=== PATIENT | female | born 1960 | race Hispanic/Latino ===

== ENCOUNTER → 2016-09-12 | Outpatient (CLI) | payer BC ==
[2016-09-12 09:24] LABS: CHLORIDE,CL 116 mmol/L (98-110); SODIUM,NA 141 mmol/L (136-146)
== END ==
LOC: MW.CHRC 08:44
PROVIDERS: ATTEND Family Medicine
DX: Z00.00 Encounter for general adult medical examination without abnormal findings (principal); I10 Essential (primary) hypertension; R73.09 Other abnormal glucose; E78.5 Hyperlipidemia, unspecified
CPT/HCPCS: 36415; 80053; 80061; 83036; 84439; 84443; 85027

== ENCOUNTER → 2016-10-09 | Outpatient (CLI) | payer BC ==
[2016-10-09 15:33] LABS: CHLORIDE,CL 113 mmol/L (98-110); SODIUM,NA 142 mmol/L (136-146)
== END ==
LOC: MW.CHRC 14:19
PROVIDERS: ATTEND Family Medicine
DX: R10.9 Unspecified abdominal pain (principal)
CPT/HCPCS: 36415; 80053; 82150; 83690; 85025; 86140

== ENCOUNTER → 2016-10-16 | Outpatient (CLI) | payer BC ==
--- NOTE | 2016-10-16 16:21 | CT ---
CT of the abdomen and pelvis without contrast. HISTORY: Pain TECHNIQUE: Axial CT images were obtained of the abdomen and pelvis without contrast. Coronal and sag ittal reconstructions obtained. FINDINGS: The lung bases are clear, no pleural effusion. The liver, spleen, adrenal glands, and pancreas appear unremarkable for noncontrast examination. The gallbladder appears normal. There is no bulky retroperitoneal lymphadenopathy. No abdominal ascite s. The left kidney is moderately atrophic of a nodular appearance to the cortex, likely partial residua l renal tissue. The large and small bowel are normal in caliber without evidence of obstruction. The appendix appear s normal. There is no bulky pelvic lymphadenopathy. No free fluid. No free air. The urinary bladder appears normal. The visualized osseous structures appear normal. IMPRESSION: No acute findings within the abdomen or pelvis.
--- NOTE | 2016-10-16 17:44 | MY ---
EXAMINATION: Bilateral digital mammography utilizing CAD. HISTORY: Screening exam. Baseline. FINDINGS: Bilateral fibroglandular densities. There are a few asymmetries annotated in the right breast. Otherwise, no suspicious calcifications, masses or architectural distortions. No pathologi c appearing lymph nodes, no abnormal skin thickening or nipple inversion. Other CAD highlighted r egions appear normal at this time. IMPRESSION: BI-RADS category 0 - Incomplete study. Right breast diagnostic is needed for further evaluation. THE FALSE-NEGATIVE RATE OF MAMMOGRAM IS APPROXIMATELY 10%. MANAGEMENT OF A PALPABLE ABNORMALITY MUST BE BASED UPON CLINICAL GROUNDS. SENSITIVITY FOR DETECTION OF ABNORMALITIES IN DENSE BREASTS IS LOW. NOTE: A letter will be sent to the patient regarding findings. [facility] -- DEANA Clinton [phone] - FAX [phone]
== END ==
LOC: MW.MAM 10:28
PROVIDERS: ATTEND Family Medicine
DX: Z12.31 Encounter for screening mammogram for malignant neoplasm of breast (principal); R10.9 Unspecified abdominal pain; R79.89 Other specified abnormal findings of blood chemistry
CPT/HCPCS: 74176; G0202

== ENCOUNTER 2017-03-28 15:44 | Emergency (ER) | payer BC ==
[2017-03-28] MEDS ORDERED: Sodium Chloride 0.9% 10 ML Syringe FLUSH PRN (16:01)
[2017-03-28] MEDS ORDERED: Aspirin 81 MG Tab.Chew PO ONE (16:01)
[2017-03-28] MEDS ORDERED: Sodium Chloride 0.9% 2.5 ML Syringe FLUSH PRN (16:01)
--- NOTE | 2017-03-28 16:06 | EDM.PDOC ---
ED HPI GENERAL MEDICAL PROBLEM - General Stated Complaint: CHEST PAIN/HBP Time Seen by Provider: 03/28/17 16:00 Source of Information: Reports: Patient History Limitations: Reports: No Limitations - History of Present Illness INITIAL COMMENTS - FREE TEXT/NARRATIVE: HISTORY AND PHYSICAL: History of present illness: [Patient comes to the emergency room complaining of left chest and arm pain which she rates as 9 out of 10 and describes as a feeling of pressure. The pain is worse with use of her left arm. She states that she has had similar pain many times throughout her life, which was always resolved while in the ER with whatever treatment she was given.. Online compliance director is utilized as patient is primarily Frisian-speaking. No cardiac history other than hypertension. She has been following with Dr. Freeman, who apparently stopped all of patient's antihypertensive medications in the past couple of weeks. The patient is not sure why these medications were stopped. She isn't able to recall which medications she took. Her son presents with her today.] Review of systems: As per history of present illness and below otherwise all systems reviewed and negative. Past medical history: As per history of present illness and as reviewed below otherwise noncontributory. Surgical history: As per history of present illness and as reviewed below otherwise noncontributory. Social history: No reported history of drug or alcohol abuse. Family history: As per history of present illness and as reviewed below otherwise noncontributory. Physical exam: HEENT: Atraumatic, normocephalic. Lungs: Clear to auscultation, breath sounds equal bilaterally. Left anterior chest is tender with palpation. Discomfort she was experiencing is reproduced with palpation. Heart: S1S2, regular rate and rhythm. No murmur gallop click or rub. Abdomen: Obese. Soft, nondistended, nontender. No guarding or rebound. Pelvis: Stable nontender. Genitourinary: Deferred. Rectal: Deferred. Extremities: Atraumatic in appearance. Is nontender with palpation of her shoulder joint and with palpation of her arm. Pain is reproduced with passive range of motion of her left shoulder. Neurovascular unremarkable. Neuro: Awake, alert, oriented. Motor and sensory unremarkable throughout. Exam nonfocal. Diagnostics: [EKG, chest x-ray, CBC, CMP, PT/INR, troponin] Therapeutics: [Nitroglycerin 0.4 mg x 3] Impression: Chest pain Left shoulder pain] Plan: [Patient's pain is reproducible with palpation. EKG and troponin are within normal limits. Pain also occurs with range of motion to shoulder. Will treat as musculoskeletal pain at this time. Encouraged close follow-up with PCP in the next day or 2. Recommend [id number] analgesics as instructed by her PCP. Strict return precautions are reviewed with the patient and her son. They're in agreement with today's discussion. Questions are answered and concerns are addressed.] Definitive disposition and diagnosis as appropriate pending reevaluation and review of above. - Related Data Allergies Allergy/AdvReac Type Severity Reaction Status Date / Time Penicillins Allergy Rash Verified 03/28/17 19:13 Home Meds: Home Meds . [No Known Home Meds] 03/28/17 [History] ED ROS GENERAL - Review of Systems Review Of Systems: ROS reveals no pertinent complaints other than HPI. ED EXAM, GENERAL - Physical Exam Exam: See Below Course - Vital Signs Last Recorded V/S: Last Vital Signs Temp 97.7 F 03/28/17 17:40 Pulse 76 03/28/17 17:40 Resp 18 03/28/17 17:40 BP 135/102 H 03/28/17 17:40 Pulse Ox 93 L 03/28/17 17:40 - Orders/Labs/Meds Orders: Active Orders 24 hr Category Date Time Status EKG Documentation Completion [RC] STAT Care 03/28/17 16:02 Active Chest 2V [CR] Stat Exams 03/28/17 16:01 Taken Peripheral IV Insertion Adult [OM.PC] Stat Oth 03/28/17 16:01 Ordered Labs: Laboratory Tests 03/28/17 03/28/17 03/28/17 Range/Units 16:11 16:11 16:11 WBC 5.93 (4.0-11.0) K/uL RBC 4.12 L (4.30-5.90) M/uL Hgb 12.0 (12.0-16.0) g/dL Hct 38.1 (36.0-46.0) % MCV 92.5 (80.0-98.0) fL MCH 29.1 (27.0-32.0) pg MCHC 31.5 (31.0-37.0) g/dL RDW Std Deviation 49.2 (28.0-62.0) fl RDW Coeff of Eber 14 (11.0-15.0) % Plt Count 243 (150-400) K/uL MPV 11.50 (7.40-12.00) fL Neut % (Auto) 50.9 (48.0-80.0) % Lymph % (Auto) 37.3 (16.0-40.0) % Tift % (Auto) 8.9 (0.0-15.0) % Eos % (Auto) 2.2 (0.0-7.0) % Baso % (Auto) 0.7 (0.0-1.5) % Neut # (Auto) 3.0 (1.4-5.7) K/uL Lymph # (Auto) 2.2 (0.6-2.4) K/uL Tift # (Auto) 0.5 (0.0-0.8) K/uL Eos # (Auto) 0.1 (0.0-0.7) K/uL Baso # (Auto) 0.0 (0.0-0.1) K/uL Nucleated RBC % 0.0 /100WBC Nucleated RBCs # 0 K/uL INR 0.96 (0.86-1.11) Sodium 141 (136-146) mmol/L Potassium 4.8 (3.5-5.1) mmol/L Chloride 114 H (98-110) mmol/L Carbon Dioxide 18 L (21-31) mmol/L BUN 28 H (6.0-23.0) mg/dL Creatinine 2.4 H (0.6-1.5) mg/dL Est Cr Clr Drug Dosing TNP Estimated GFR (MDRD) 20.7 ml/min Glucose 88 (60-110) mg/dL Calcium 9.0 (8.8-10.8) mg/dL Total Bilirubin 0.4 (0.1-1.5) mg/dL AST 20 (5-40) IU/L ALT 14 (8-54) IU/L Alkaline Phosphatase 97 (40-150) Troponin I < 0.10 (0.0-0.29) NG/ML Total Protein 6.9 (6.0-8.0) g/dL Albumin 3.6 (3.5-5.0) g/dL Globulin 3.3 (2.0-3.5) g/dL Albumin/Globulin Ratio 1.1 L (1.3-2.8) Amylase 107 H (10-90) U/L Lipase 29 (7-80) U/L Meds: Medications Discontinued Medications Generic Name Dose Route Start Last Admin Trade Name Freq PRN Reason Stop Dose Admin Aspirin 324 mg 03/28/17 16:01 03/28/17 16:20 Aspirin PO 03/28/17 16:02 324 mg ONETIME ONE Administration Nitroglycerin Confirm 03/28/17 15:59 03/28/17 16:22 Nitrostat Administered 03/28/17 16:00 0.4 mg Dose Administration 0.4 mg .ROUTE .STK-MED ONE Sodium Chloride 10 ml 03/28/17 16:01 Saline Flush FLUSH ASDIRECTED PRN Keep Vein Open Sodium Chloride 2.5 ml 03/28/17 16:01 Saline Flush FLUSH ASDIRECTED PRN Keep Vein Open Departure - Departure Time of Disposition: 17:31 Disposition: Home, Self-Care 01 Condition: Good Clinical Impression: Left shoulder pain Instructions: Shoulder Pain, [id number] Referrals: PCP,None [Primary Care Provider] - Forms: ED Department Discharge Additional Instructions: The following information is given to patients seen in the emergency department who are being discharged to home. This information is to outline your options for follow-up care. We provide all patients seen in our emergency department with a follow-up referral. The need for follow-up, as well as the timing and circumstances, are variable depending upon the specifics of your emergency department visit. If you don't have a primary care physician on staff, we will provide you with a referral. We always advise you to contact your personal physician following an emergency department visit to inform them of the circumstance of the visit and for follow-up with them and/or the need for any referrals to a consulting specialist. The emergency department will also refer you to a specialist when appropriate. This referral assures that you have the opportunity for follow-up care with a specialist. All of these measure are taken in an effort to provide you with optimal care, which includes your follow-up. Under all circumstances we always encourage you to contact your private physician who remains a resource for coordinating your care. When calling for follow-up care, please make the office aware that this follow-up is from your recent emergency room visit. If for any reason you are refused follow-up, please contact the [facility] emergency department at and asked to speak to the emergency department charge nurse. [facility] [address] [place] [id number] Your lab results and chest x-ray within normal limits today. Your blood pressure is too high. Follow-up with your primary care provider or at the clinic listed above in the next 2-3 days. Return to ER as needed as discussed. - My Orders Last 24 Hours: My Active Orders 03/28/17 16:01 Chest 2V [CR] Stat Peripheral IV Insertion Adult [OM.PC] Stat 03/28/17 16:02 EKG Documentation Completion [RC] STAT - Assessment/Plan Last 24 Hours: My Active Orders 03/28/17 16:01 Chest 2V [CR] Stat Peripheral IV Insertion Adult [OM.PC] Stat 03/28/17 16:02 EKG Documentation Completion [RC] STAT
[2017-03-28] MEDS: Nitroglycerin 0.4 MG Tab.SL ONE ×3 (16:12→16:22)
[2017-03-28 16:55] LABS: CHLORIDE,CL 114 mmol/L (98-110); SODIUM,NA 141 mmol/L (136-146)
--- NOTE | 2017-03-29 10:59 | CR ---
EXAMINATION: Two-view chest (PA and Lateral views). HISTORY: Chest pain. FINDINGS: The trachea is midline. The cardiomediastinal silhouette is within normal limits. No pulmonary infilt rates, effusions or pneumothorax. Osseous structures appear unremarkable. IMPRESSION: No acute cardiopulmonary process.
== END 2017-03-28 17:41 | disposition home or self-care (01) ==
LOC: MW.ED 15:44
DX: R07.9 Chest pain, unspecified (principal); M25.512 Pain in left shoulder; Z88.0 Allergy status to penicillin
CPT/HCPCS: 36415; 71020; 80053; 82150; 83690; 84484; 85025; 85610; 99285; A9270; 93005

== ENCOUNTER 2020-01-08 17:30 | Observation (INO) | payer OTHER ==
[2020-01-08] MEDS ORDERED: Ondansetron 4 MG Tab.DIS PO PRN (17:35)
[2020-01-08] MEDS ORDERED: Ondansetron 4 MG/2 ML SDV IVPUSH PRN (17:35)
[2020-01-08] MEDS ORDERED: Acetaminophen 325 MG Tab PO PRN (17:35)
[2020-01-08] MEDS ORDERED: Calcium Gluconate 10% 1 GM/10 ML SDV IVPUSH ONE (17:40)
[2020-01-08] MEDS ORDERED: 50% Dextrose in Water 50 ML Syringe IVPUSH ONE (17:42)
[2020-01-08] MEDS ORDERED: Albuterol 0.083% 2.5 MG/3 ML Neb Soln NEB ONE ×2 (17:45→20:30)
[2020-01-08] MEDS ORDERED: Heparin Sodium 5,000 Units/ML Vial SUBCUT SCH (17:45)
[2020-01-08] MEDS ORDERED: Furosemide 20 MG/2 ML VIAL IVPUSH ONE (17:58)
--- NOTE | 2020-01-08 18:04 | PCM.HP.2 ---
H&P History of Present Illness - General Date of Service: 01/08/20 Admit Problem/Dx: Admission Diagnosis/Problem Admission Diagnosis/Problem Hyperkalemia Source of Information: Patient History Limitations: Reports: No Limitations - History of Present Illness Initial Comments - Free Text/Narative: 59-year-old female directly admitted from clinic for hyperkalemia. Potassium dorothy treadwell was 7.0 in clinic today. She has a PMH of CKD, HTN and hyperlipidemia. Patient was seen by PCP initially in clinic yesterday to discuss getting a nephrology referral appointment. Patient had seen a galvanizer zinc approximately 1-2 years ago and told her kidney function was approximately 10%. She had not followed up with a galvanizer zinc after this. Potassium level was noted to be 6.1 yesterday at PCP's office and patient was asked to return to clinic today for recheck. Potassium level was rechecked and confirmed to be elevated, however, today it was even higher at 7.0. EKG done in clinic was unremarkable. PCP then contacted galvanizer zinc at [facility] in [place] for recommendations. Certified Technician Specialist recommended admission to hospital for management of hyperkalemia. Patient denies any fevers, chills, sore throat, cough, SOB, chest pain, palpitations, nausea, vomiting, abdominal pain, diarrhea, blood in stool, blood in urine, numbness or tingling in extremities. Patient reports that she produces urine. - Related Data Allergies/Adverse Reactions: Allergies Allergy/AdvReac Type Severity Reaction Status Date / Time Penicillins Allergy Rash Verified 05/07/18 09:37 Home Medications: Home Meds Olmesartan Medoxomil 1 tab PO DAILY 05/07/18 [History] Progesterone, Micronized [Progesterone] 1 cap PO DAILY 05/07/18 [History] Rosuvastatin Calcium 1 tab PO DAILY 05/07/18 [History] carvediloL [Carvedilol] 1 tab PO DAILY 05/07/18 [History] predniSONE [Prednisone] 1 tab PO DAILY 05/07/18 [History] Past Medical History Cardiovascular History: Reports: Hypertension Genitourinary History: Reports: Chronic Renal Insuffiency Musculoskeletal History: Reports: Other (See Below) Other Musculoskeletal History: bilateral foot pain Social & Family History - Family History Family Medical History: Unobtainable - Caffeine Use Caffeine Use: Reports: Coffee H&P Review of Systems - Review of Systems: Review Of Systems: Comprehensive ROS is negative, except as noted in HPI. Exam - Exam Exam: See Below - Exam General: Alert, Oriented, Cooperative HEENT: Conjunctiva Clear, EOMI, Hearing Intact, Posterior Pharynx Clear, Pupils Equal, Pupils Reactive Neck: Supple, Trachea Midline Lungs: Clear to Auscultation, Normal Respiratory Effort Cardiovascular: Regular Rate, Regular Rhythm GI/Abdominal Exam: Normal Bowel Sounds, Soft, Non-Tender, No Distention Extremities: Normal Inspection, No Pedal Edema Peripheral Pulses: 2+: Radial (L), Radial (R) Skin: Warm, Dry, Intact Neurological: Cranial Nerves Intact, Strength Equal Bilateral, Normal Speech, Normal Tone Neuro Extensive - Mental Status: Alert, Oriented x3, Normal Mood/Affect Psychiatric: Alert, Normal Affect, Normal Mood Problem List Initiated/Reviewed/Updated: Yes Orders Last 24hrs: Active Orders 24 hr Category Date Time Status Patient Status [ADT] Routine ADT 01/08/20 17:35 Active Cardiac Monitoring [RC] . DIRECTED Care 01/08/20 17:39 Active Oxygen Therapy [RC] PRN Care 01/08/20 17:35 Active RT Aerosol Therapy [RC] ASDIRECTED Care 01/08/20 17:43 Active Up ad Altagracia [RC] ASDIRECTED Care 01/08/20 17:35 Active VTE/DVT Education [RC] PER UNIT ROUTINE Care 01/08/20 17:35 Active Vital Signs [RC] Q4H Care 01/08/20 17:35 Active Renal Dialysis Diet [DIET] Diet 01/08/20 Dinner Active CBC WITH AUTO DIFF [HEME] Urgent Lab 01/08/20 17:38 Ordered COMPREHENSIVE METABOLIC PN,CMP [CHEM] Urgent Lab 01/08/20 17:38 Ordered CORONAVIRUS COVID-19 RAPID [MOLEC] Urgent Lab 01/08/20 18:00 Received Acetaminophen [Tylenol] Med 01/08/20 17:35 Active 650 mg PO Q4H PRN Furosemide [Lasix] Med 01/08/20 17:58 Once 20 mg IVPUSH ONETIME ONE Heparin Sodium Med 01/08/20 17:45 Active 5,000 units SUBCUT Q8H Ondansetron [Zofran ODT] Med 01/08/20 17:35 Active 4 mg PO Q4H PRN Ondansetron [Zofran] Med 01/08/20 17:35 Active 4 mg IVPUSH Q4H PRN Sodium Chloride 0.9% [Normal Saline] 1,000 ml Med 01/08/20 18:00 Ordered IV STAT Medication Orders Acetaminophen (Tylenol) 650 mg PO Q4H PRN PRN Reason: Pain (Mild 1-3)/fever Furosemide (Lasix) 20 mg IVPUSH ONETIME ONE Stop: 01/08/20 17:59 Heparin Sodium (Porcine) (Heparin Sodium) 5,000 units SUBCUT Q8H ROBLES Sodium Chloride (Normal Saline) 1,000 mls @ 125 mls/hr IV STAT ROBLES Ondansetron HCl (Zofran Odt) 4 mg PO Q4H PRN PRN Reason: nausea, able to take PO Ondansetron HCl (Zofran) 4 mg IVPUSH Q4H PRN PRN Reason: Nausea Assessment/Plan Comment:: Assessment and Plan: 1. Hyperkalemia: - Admit to med/surg. Patient on telemetry. COVID19 test negative. Potassium level 7.0 at PCP's office this afternoon. PCP contacted galvanizer zinc at [facility] in [place], [place] for recommendations. Will give IV calcium gluconate 1 g, amp of D50, insulin reg 3 units, albuterol nebulizer treatment, IV lasix 20 mg and start IV NS @ 125 cc/hr. Patient will be on renal diet. Will recheck potassium level 2h after interventions. - EKG showed normal sinus rhythm. 2. Chronic kidney disease: - Creatinine level 4.0 and eGFR 11.4. Patient continues to produce urine. - Will require outpatient nephrology follow-up. 3. DVT prophylaxis: Heparin. 4. Past medical history of HTN and hyperlipidemia: - Continue home medications with the exception of ACEI/ARB.
[2020-01-08] MEDS: Heparin Sodium 5,000 Units/ML Vial SUBCUT SCH ×2 (18:50→19:41)
[2020-01-08] MEDS: Sodium Chloride 0.9% 1,000 ML IV SCH (19:39)
[2020-01-08 19:52] LABS: BLOOD UREA NITROGEN,BUN 49 mg/dL (7.0-18.0); CARBON DIOXIDE,CO2 19.4 mmol/L (21.0-32.0); CHLORIDE,CL 111 mmol/L (98-107); GLUCOSE RANDOM 92 mg/dL (74-106); POTASSIUM,K 6.2 mmol/L (3.5-5.1); SODIUM,NA 140 mmol/L (136-145)
[2020-01-08] MEDS: Insulin Regular, Human 100 Units/ML 10 ML Vial IVPUSH ONE ×2 (19:59→20:07)
[2020-01-09] MEDS: Sodium Chloride 0.9% 1,000 ML IV SCH ×3 (03:16→19:16)
[2020-01-09] MEDS: Heparin Sodium 5,000 Units/ML Vial SUBCUT SCH ×2 (05:34→18:00)
[2020-01-09 06:22] LABS: BLOOD UREA NITROGEN,BUN 47 mg/dL (7.0-18.0); CARBON DIOXIDE,CO2 19.5 mmol/L (21.0-32.0); CHLORIDE,CL 108 mmol/L (98-107); POTASSIUM,K 5.9 mmol/L (3.5-5.1); SODIUM,NA 137 mmol/L (136-145)
[2020-01-09 06:29] LABS: GLUCOSE RANDOM 39 mg/dL (74-106)
[2020-01-09] MEDS ORDERED: 50% Dextrose in Water 50 ML Syringe IVPUSH ONE (06:33)
[2020-01-09] MEDS: Melatonin 3 MG Tab PO SCH ×2 (07:35→21:37)
[2020-01-09] MEDS ORDERED: Albuterol 0.083% 2.5 MG/3 ML Neb Soln NEB ONE ×2 (07:35→13:00)
[2020-01-09] MEDS ORDERED: Furosemide 20 MG/2 ML VIAL IVPUSH ONE ×2 (07:47→12:57)
[2020-01-09] MEDS ORDERED: Calcium Gluconate 10% 1 GM/10 ML SDV IV ONE ×2 (07:50→13:20)
--- NOTE | 2020-01-09 10:07 | PCM.PN ---
- General Info Date of Service: 01/09/20 Subjective Update: Patient reports leg camping yesterday evening and hand numbness this morning. - Patient Data Vitals - Most Recent: Last Vital Signs Temp 35.5 C L 01/09/20 07:00 Pulse 69 01/09/20 07:00 Resp 14 01/09/20 07:00 BP 119/58 L 01/09/20 07:00 Pulse Ox 99 01/09/20 07:00 I&O - Last 24 Hours: Intake & Output 01/08/20 01/09/20 01/09/20 22:59 06:59 14:59 Intake Total 2980 Output Total 1300 Balance 1680 Lab Results Last 24 Hours: Laboratory Results - last 24 hr 01/08/20 01/08/20 01/08/20 Range/Units 18:00 19:10 19:10 WBC 7.04 (4.0-11.0) K/uL RBC 3.60 L (4.30-5.90) M/uL Hgb 10.3 L (12.0-16.0) g/dL Hct 34.2 L (36.0-46.0) % MCV 95.0 (80.0-98.0) fL MCH 28.6 (27.0-32.0) pg MCHC 30.1 L (31.0-37.0) g/dL RDW Std Deviation 48.7 (28.0-62.0) fl RDW Coeff of Eber 14 (11.0-15.0) % Plt Count 212 (150-400) K/uL MPV 11.90 (7.40-12.00) fL Neut % (Auto) 58.4 (48.0-80.0) % Lymph % (Auto) 31.0 (16.0-40.0) % [place] % (Auto) 7.5 (0.0-15.0) % Eos % (Auto) 2.7 (0.0-7.0) % Baso % (Auto) 0.4 (0.0-1.5) % Neut # (Auto) 4.1 (1.4-5.7) K/uL Lymph # (Auto) 2.2 (0.6-2.4) K/uL [place] # (Auto) 0.5 (0.0-0.8) K/uL Eos # (Auto) 0.2 (0.0-0.7) K/uL Baso # (Auto) 0.0 (0.0-0.1) K/uL Nucleated RBC % 0.0 /100WBC Nucleated RBCs # 0 K/uL Sodium 140 (136-145) mmol/L Potassium 6.2 H (3.5-5.1) mmol/L Chloride 111 H (98-107) mmol/L Carbon Dioxide 19.4 L (21.0-32.0) mmol/L BUN 49 H (7.0-18.0) mg/dL Creatinine 3.9 H (0.6-1.0) mg/dL Est Cr Clr Drug Dosing TNP Estimated GFR (MDRD) 11.7 ml/min Glucose 92 (74-106) mg/dL POC Glucose (60-110) mg/dL Calcium 8.3 L (8.5-10.1) mg/dL Total Bilirubin 0.3 (0.2-1.0) mg/dL AST 23 (15-37) IU/L ALT 25 (14-63) IU/L Alkaline Phosphatase 84 (46-116) U/L Total Protein 6.8 (6.4-8.2) g/dL Albumin 3.3 L (3.4-5.0) g/dL Globulin 3.5 (2.6-4.0) g/dL Albumin/Globulin Ratio 0.9 (0.9-1.6) COVID-19 (TRE[facility]) NEGATIVE (NEGATIVE) 01/08/20 01/08/20 01/09/20 Range/Units 20:13 22:35 05:25 WBC 8.09 (4.0-11.0) K/uL RBC 3.46 L (4.30-5.90) M/uL Hgb 10.0 L (12.0-16.0) g/dL Hct 32.9 L (36.0-46.0) % MCV 95.1 (80.0-98.0) fL MCH 28.9 (27.0-32.0) pg MCHC 30.4 L (31.0-37.0) g/dL RDW Std Deviation 48.3 (28.0-62.0) fl RDW Coeff of Eber 14 (11.0-15.0) % Plt Count 224 (150-400) K/uL MPV 12.10 H (7.40-12.00) fL Neut % (Auto) 62.1 (48.0-80.0) % Lymph % (Auto) 26.2 (16.0-40.0) % [place] % (Auto) 9.1 (0.0-15.0) % Eos % (Auto) 2.2 (0.0-7.0) % Baso % (Auto) 0.4 (0.0-1.5) % Neut # (Auto) 5.0 (1.4-5.7) K/uL Lymph # (Auto) 2.1 (0.6-2.4) K/uL [place] # (Auto) 0.7 (0.0-0.8) K/uL Eos # (Auto) 0.2 (0.0-0.7) K/uL Baso # (Auto) 0.0 (0.0-0.1) K/uL Nucleated RBC % 0.0 /100WBC Nucleated RBCs # 0 K/uL Sodium (136-145) mmol/L Potassium 4.8 (3.5-5.1) mmol/L Chloride (98-107) mmol/L Carbon Dioxide (21.0-32.0) mmol/L BUN (7.0-18.0) mg/dL Creatinine (0.6-1.0) mg/dL Est Cr Clr Drug Dosing Estimated GFR (MDRD) ml/min Glucose (74-106) mg/dL POC Glucose 180 H (60-110) mg/dL Calcium (8.5-10.1) mg/dL Total Bilirubin (0.2-1.0) mg/dL AST (15-37) IU/L ALT (14-63) IU/L Alkaline Phosphatase (46-116) U/L Total Protein (6.4-8.2) g/dL Albumin (3.4-5.0) g/dL Globulin (2.6-4.0) g/dL Albumin/Globulin Ratio (0.9-1.6) COVID-19 ([facility]RE[facility]) (NEGATIVE) 01/09/20 01/09/20 01/09/20 Range/Units 05:25 07:06 09:52 WBC (4.0-11.0) K/uL RBC (4.30-5.90) M/uL Hgb (12.0-16.0) g/dL Hct (36.0-46.0) % MCV (80.0-98.0) fL MCH (27.0-32.0) pg MCHC (31.0-37.0) g/dL RDW Std Deviation (28.0-62.0) fl RDW Coeff of Eber (11.0-15.0) % Plt Count (150-400) K/uL MPV (7.40-12.00) fL Neut % (Auto) (48.0-80.0) % Lymph % (Auto) (16.0-40.0) % [place] % (Auto) (0.0-15.0) % Eos % (Auto) (0.0-7.0) % Baso % (Auto) (0.0-1.5) % Neut # (Auto) (1.4-5.7) K/uL Lymph # (Auto) (0.6-2.4) K/uL [place] # (Auto) (0.0-0.8) K/uL Eos # (Auto) (0.0-0.7) K/uL Baso # (Auto) (0.0-0.1) K/uL Nucleated RBC % /100WBC Nucleated RBCs # K/uL Sodium 137 (136-145) mmol/L Potassium 5.9 H (3.5-5.1) mmol/L Chloride 108 H (98-107) mmol/L Carbon Dioxide 19.5 L (21.0-32.0) mmol/L BUN 47 H (7.0-18.0) mg/dL Creatinine 3.6 H (0.6-1.0) mg/dL Est Cr Clr Drug Dosing TNP Estimated GFR (MDRD) 12.9 ml/min Glucose 39 L* (74-106) mg/dL POC Glucose 133 H 115 H (60-110) mg/dL Calcium 8.0 L (8.5-10.1) mg/dL Total Bilirubin 0.3 (0.2-1.0) mg/dL AST 24 (15-37) IU/L ALT 26 (14-63) IU/L Alkaline Phosphatase 75 (46-116) U/L Total Protein 6.3 L (6.4-8.2) g/dL Albumin 3.0 L (3.4-5.0) g/dL Globulin 3.3 (2.6-4.0) g/dL Albumin/Globulin Ratio 0.9 (0.9-1.6) COVID-19 ([facility]) (NEGATIVE) Med Orders - Current: Current Medications Acetaminophen (Tylenol) 650 mg PO Q4H PRN PRN Reason: Pain (Mild 1-3)/fever Carvedilol (Coreg) 25 mg PO DAILY [facility] Heparin Sodium (Porcine) (Heparin Sodium) 5,000 units SUBCUT Q12H ROBLES Last Admin: 01/09/20 05:34 Dose: 5,000 units Documented by: Sodium Chloride (Normal Saline) 1,000 mls @ 125 mls/hr IV STAT [facility] Last Admin: 01/09/20 03:16 Dose: 125 mls/hr Documented by: Melatonin (Melatonin) 9 mg PO BEDTIME [facility] Last Admin: 01/09/20 07:35 Dose: Not Given Documented by: Ondansetron HCl (Zofran Odt) 4 mg PO Q4H PRN PRN Reason: nausea, able to take PO Ondansetron HCl (Zofran) 4 mg IVPUSH Q4H PRN PRN Reason: Nausea Rosuvastatin Calcium (Crestor) 40 mg PO BEDTIME [facility] Discontinued Medications Albuterol (Proventil Neb Soln) 2.5 mg NEB ONETIME ONE Stop: 01/08/20 17:46 Last Admin: 01/08/20 21:05 Dose: Not Given Documented by: Albuterol (Proventil Neb Soln) 2.5 mg NEB ONETIME ONE Stop: 01/08/20 20:31 Last Admin: 01/08/20 21:02 Dose: 2.5 mg Documented by: Albuterol (Proventil Neb Soln) 2.5 mg NEB ONETIME ONE Stop: 01/09/20 07:36 Last Admin: 01/09/20 08:40 Dose: 2.5 mg Documented by: Calcium Gluconate (Calcium Gluconate) 1 gm IVPUSH ONETIME ONE Stop: 01/08/20 17:41 Last Admin: 01/08/20 19:48 Dose: 1 gm Documented by: Calcium Gluconate (Calcium Gluconate) 1 gm IV ONETIME ONE Stop: 01/09/20 07:51 Last Admin: 01/09/20 08:41 Dose: 1 gm Documented by: Dextrose/Water (Dextrose 50% In Water) 50 ml IVPUSH ONETIME ONE Stop: 01/08/20 17:43 Last Admin: 01/08/20 19:55 Dose: 50 ml Documented by: Dextrose/Water (Dextrose 50% In Water) 50 ml IVPUSH ONETIME ONE Stop: 01/09/20 06:34 Last Admin: 01/09/20 06:45 Dose: 50 ml Documented by: Furosemide (Lasix) 20 mg IVPUSH ONETIME ONE Stop: 01/08/20 17:59 Last Admin: 01/08/20 19:45 Dose: 20 mg Documented by: Furosemide (Lasix) 20 mg IVPUSH ONETIME ONE Stop: 01/09/20 07:48 Last Admin: 01/09/20 08:41 Dose: 20 mg Documented by: Heparin Sodium (Porcine) (Heparin Sodium) 5,000 units SUBCUT Q8H ROBLES Last Admin: 01/08/20 18:18 Dose: Not Given Documented by: Insulin Human Regular (Novolin R) 3 unit IVPUSH ONETIME ONE; Protocol Stop: 01/08/20 17:42 Last Admin: 01/08/20 20:07 Dose: 3 units Documented by: - Exam General: Alert, Oriented, Cooperative, No Acute Distress Lungs: Clear to Auscultation, Normal Respiratory Effort Cardiovascular: Regular Rate, Regular Rhythm GI/Abdominal Exam: Normal Bowel Sounds, Soft, Non-Tender, No Distention Extremities: Normal Inspection, No Pedal Edema Sepsis Event Note - Evaluation Sepsis Screening Result: No Definite Risk - Focused Exam Vital Signs: Vital Signs Temp Pulse Resp BP Pulse Ox 01/09/20 07:00 35.5 C L 69 14 119/58 L 99 01/09/20 03:27 35.9 C L 61 16 127/82 96 01/08/20 23:43 36.6 C 75 17 119/58 L 96 - Problem List Review Problem List Initiated/Reviewed/Updated: Yes - My Orders Last 24 Hours: My Active Orders 01/08/20 Dinner Renal Dialysis Diet [DIET] 01/08/20 17:35 Patient Status [ADT] Routine Oxygen Therapy [RC] PRN Up ad Altagracia [RC] ASDIRECTED VTE/DVT Education [RC] PER UNIT ROUTINE Vital Signs [RC] Q4H Acetaminophen [Tylenol] 650 mg PO Q4H PRN Ondansetron [Zofran ODT] 4 mg PO Q4H PRN Ondansetron [Zofran] 4 mg IVPUSH Q4H PRN 01/08/20 17:39 Cardiac Monitoring [RC] . DIRECTED 01/08/20 17:43 RT Aerosol Therapy [RC] ASDIRECTED 01/08/20 18:00 Sodium Chloride 0.9% [Normal Saline] 1,000 ml IV STAT 01/08/20 18:30 Heparin Sodium 5,000 units SUBCUT Q12H 01/08/20 18:44 Code Status [Resuscitation Status] Routine 01/08/20 19:00 Telemetry Monitoring [Cardiac Monitoring] [RC] Q8H 01/08/20 21:00 Melatonin 9 mg PO BEDTIME 01/09/20 07:35 RT Aerosol Therapy [RC] ASDIRECTED 01/09/20 09:00 carvediloL [Coreg] 25 mg PO DAILY 01/09/20 21:00 Rosuvastatin [Crestor] 40 mg PO BEDTIME 01/10/20 05:11 CBC WITH AUTO DIFF [HEME] AM COMPREHENSIVE METABOLIC PN,CMP [CHEM] AM - Plan Plan:: Assessment and Plan: 1. Hyperkalemia, improving: - Potassium level 5.9 this morning. Will give IV calcium gluconate 1 g, albuterol nebulizer treatment, IV lasix 20 mg this morning. Continue IV NS @ 125 cc/hr. Will recheck potassium level this morning. Will contact nephrology for further recommendations. - EKG showed normal sinus rhythm. 2. Chronic kidney disease: - Will require outpatient nephrology follow-up. 3. DVT prophylaxis: Heparin. 4. Past medical history of HTN and hyperlipidemia: - Continue home medications with the exception of ACEI/ARB.
[2020-01-09] MEDS: Carvedilol 25 MG Tab PO SCH (10:25)
[2020-01-09 11:56] LABS: BLOOD UREA NITROGEN,BUN 50 mg/dL (7.0-18.0); CARBON DIOXIDE,CO2 22.3 mmol/L (21.0-32.0); CHLORIDE,CL 105 mmol/L (98-107); GLUCOSE RANDOM 122 mg/dL (74-106); POTASSIUM,K 6.5 mmol/L (3.5-5.1); SODIUM,NA 135 mmol/L (136-145)
--- NOTE | 2020-01-09 16:01 | US ---
Renal ultrasound: Multiple real-time images of the kidneys were obtained. Comparison: Previous renal ultrasound exam of 01/15/17. Findings: Both kidneys show echogenic cortices compatible with medical renal disease. Areas of cortical thinning are seen within left kidney which are stable from previous study which is compatible with scarring. No hydronephrosis is seen. Measurements: Right kidney length: 9.5 cm Left kidney length: 7.8 cm Impression: 1. Echogenic renal cortices compatible with medical renal disease. 2. Stable areas of scarring within the left kidney when comparing to prior study. 3. No hydronephrosis is seen. 4. Small left kidney. Diagnostic code #2 Study was dictated in MDT
[2020-01-09] MEDS ORDERED: Furosemide 40 MG/4 ML VIAL IVPUSH ONE (17:17)
[2020-01-09] MEDS ORDERED: Rosuvastatin 10 MG Tab PO SCH (21:00)
[2020-01-09 22:21] LABS: BLOOD UREA NITROGEN,BUN 55 mg/dL (7.0-18.0); CARBON DIOXIDE,CO2 22.8 mmol/L (21.0-32.0); CHLORIDE,CL 109 mmol/L (98-107); GLUCOSE RANDOM 119 mg/dL (74-106); POTASSIUM,K 5.3 mmol/L (3.5-5.1); SODIUM,NA 140 mmol/L (136-145)
[2020-01-10] MEDS: Sodium Chloride 0.9% 1,000 ML IV SCH ×2 (02:44→15:08)
[2020-01-10 06:42] LABS: BLOOD UREA NITROGEN,BUN 56 mg/dL (7.0-18.0); CARBON DIOXIDE,CO2 18.6 mmol/L (21.0-32.0); CHLORIDE,CL 110 mmol/L (98-107); GLUCOSE RANDOM 102 mg/dL (74-106); POTASSIUM,K 5.3 mmol/L (3.5-5.1); SODIUM,NA 139 mmol/L (136-145)
[2020-01-10] MEDS: Heparin Sodium 5,000 Units/ML Vial SUBCUT SCH (06:57)
[2020-01-10] MEDS: Carvedilol 25 MG Tab PO SCH (09:04)
[2020-01-10] MEDS ORDERED: Furosemide 40 MG/4 ML VIAL IVPUSH ONE ×2 (09:35→15:51)
[2020-01-10] MEDS ORDERED: Sodium Polystyrene Sulfonate 15 GM/60 ML Susp 60 ML Bot PO ONE ×2 (10:23→15:51)
[2020-01-10] MEDS: Sodium Bicarbonate 650 MG Tab PO SCH ×2 (10:29→13:50)
--- NOTE | 2020-01-10 12:44 | PCM.PN ---
<Efra Bedolla M - Last Filed: 01/10/20 12:31> - General Info Date of Service: 01/10/20 Subjective Update: Denies any pain, fevers, chills, SOB or chest pain. Eating and urinating appropriately. - Patient Data Vitals - Most Recent: Last Vital Signs Temp 36.8 C 01/10/20 12:00 Pulse 70 01/10/20 12:00 Resp 16 01/10/20 12:00 BP 165/96 H 01/10/20 12:00 Pulse Ox 97 01/10/20 12:00 I&O - Last 24 Hours: Intake & Output 01/09/20 01/10/20 01/10/20 22:59 06:59 14:59 Intake Total 1999 1825 Output Total 225 2200 Balance -250 -374 Lab Results Last 24 Hours: Laboratory Results - last 24 hr 01/09/20 01/09/20 01/09/20 Range/Units 13:12 16:19 16:31 WBC (4.0-11.0) K/uL RBC (4.30-5.90) M/uL Hgb (12.0-16.0) g/dL Hct (36.0-46.0) % MCV (80.0-98.0) fL MCH (27.0-32.0) pg MCHC (31.0-37.0) g/dL RDW Std Deviation (28.0-62.0) fl RDW Coeff of Eber (11.0-15.0) % Plt Count (150-400) K/uL MPV (7.40-12.00) fL Neut % (Auto) (48.0-80.0) % Lymph % (Auto) (16.0-40.0) % [place] % (Auto) (0.0-15.0) % Eos % (Auto) (0.0-7.0) % Baso % (Auto) (0.0-1.5) % Neut # (Auto) (1.4-5.7) K/uL Lymph # (Auto) (0.6-2.4) K/uL [place] # (Auto) (0.0-0.8) K/uL Eos # (Auto) (0.0-0.7) K/uL Baso # (Auto) (0.0-0.1) K/uL Sodium (136-145) mmol/L Potassium 5.8 H (3.5-5.1) mmol/L Chloride (98-107) mmol/L Carbon Dioxide (21.0-32.0) mmol/L BUN (7.0-18.0) mg/dL Creatinine (0.6-1.0) mg/dL Est Cr Clr Drug Dosing Estimated GFR (MDRD) ml/min Glucose (74-106) mg/dL POC Glucose 109 104 (60-110) mg/dL Calcium (8.5-10.1) mg/dL Total Bilirubin (0.2-1.0) mg/dL AST (15-37) IU/L ALT (14-63) IU/L Alkaline Phosphatase (46-116) U/L Total Protein (6.4-8.2) g/dL Albumin (3.4-5.0) g/dL Globulin (2.6-4.0) g/dL Albumin/Globulin Ratio (0.9-1.6) 01/09/20 01/09/20 01/09/20 Range/Units 19:11 21:46 22:06 WBC (4.0-11.0) K/uL RBC (4.30-5.90) M/uL Hgb (12.0-16.0) g/dL Hct (36.0-46.0) % MCV (80.0-98.0) fL MCH (27.0-32.0) pg MCHC (31.0-37.0) g/dL RDW Std Deviation (28.0-62.0) fl RDW Coeff of Eber (11.0-15.0) % Plt Count (150-400) K/uL MPV (7.40-12.00) fL Neut % (Auto) (48.0-80.0) % Lymph % (Auto) (16.0-40.0) % [place] % (Auto) (0.0-15.0) % Eos % (Auto) (0.0-7.0) % Baso % (Auto) (0.0-1.5) % Neut # (Auto) (1.4-5.7) K/uL Lymph # (Auto) (0.6-2.4) K/uL [place] # (Auto) (0.0-0.8) K/uL Eos # (Auto) (0.0-0.7) K/uL Baso # (Auto) (0.0-0.1) K/uL Sodium 140 (136-145) mmol/L Potassium 5.3 H (3.5-5.1) mmol/L Chloride 109 H (98-107) mmol/L Carbon Dioxide 22.8 (21.0-32.0) mmol/L BUN 55 H (7.0-18.0) mg/dL Creatinine 3.5 H (0.6-1.0) mg/dL Est Cr Clr Drug Dosing TNP Estimated GFR (MDRD) 13.3 ml/min Glucose 119 H (74-106) mg/dL POC Glucose 111 H 132 H (60-110) mg/dL Calcium 8.1 L (8.5-10.1) mg/dL Total Bilirubin (0.2-1.0) mg/dL AST (15-37) IU/L ALT (14-63) IU/L Alkaline Phosphatase (46-116) U/L Total Protein (6.4-8.2) g/dL Albumin (3.4-5.0) g/dL Globulin (2.6-4.0) g/dL Albumin/Globulin Ratio (0.9-1.6) 01/10/20 01/10/20 01/10/20 Range/Units 01:12 04:45 05:40 WBC 6.44 (4.0-11.0) K/uL RBC 3.22 L (4.30-5.90) M/uL Hgb 9.5 L (12.0-16.0) g/dL Hct 30.4 L (36.0-46.0) % MCV 94.4 (80.0-98.0) fL MCH 29.5 (27.0-32.0) pg MCHC 31.3 (31.0-37.0) g/dL RDW Std Deviation 42.4 (28.0-62.0) fl RDW Coeff of Eber 13 (11.0-15.0) % Plt Count 171 (150-400) K/uL MPV 12.70 H (7.40-12.00) fL Neut % (Auto) 53.1 (48.0-80.0) % Lymph % (Auto) 33.5 (16.0-40.0) % [place] % (Auto) 10.7 (0.0-15.0) % Eos % (Auto) 2.5 (0.0-7.0) % Baso % (Auto) 0.2 (0.0-1.5) % Neut # (Auto) 3.4 (1.4-5.7) K/uL Lymph # (Auto) 2.2 (0.6-2.4) K/uL [place] # (Auto) 0.7 (0.0-0.8) K/uL Eos # (Auto) 0.2 (0.0-0.7) K/uL Baso # (Auto) 0.0 (0.0-0.1) K/uL Sodium (136-145) mmol/L Potassium (3.5-5.1) mmol/L Chloride (98-107) mmol/L Carbon Dioxide (21.0-32.0) mmol/L BUN (7.0-18.0) mg/dL Creatinine (0.6-1.0) mg/dL Est Cr Clr Drug Dosing Estimated GFR (MDRD) ml/min Glucose (74-106) mg/dL POC Glucose 113 H 96 (60-110) mg/dL Calcium (8.5-10.1) mg/dL Total Bilirubin (0.2-1.0) mg/dL AST (15-37) IU/L ALT (14-63) IU/L Alkaline Phosphatase (46-116) U/L Total Protein (6.4-8.2) g/dL Albumin (3.4-5.0) g/dL Globulin (2.6-4.0) g/dL Albumin/Globulin Ratio (0.9-1.6) 01/10/20 01/10/20 01/10/20 Range/Units 05:40 06:54 09:53 WBC (4.0-11.0) K/uL RBC (4.30-5.90) M/uL Hgb (12.0-16.0) g/dL Hct (36.0-46.0) % MCV (80.0-98.0) fL MCH (27.0-32.0) pg MCHC (31.0-37.0) g/dL RDW Std Deviation (28.0-62.0) fl RDW Coeff of Eber (11.0-15.0) % Plt Count (150-400) K/uL MPV (7.40-12.00) fL Neut % (Auto) (48.0-80.0) % Lymph % (Auto) (16.0-40.0) % [place] % (Auto) (0.0-15.0) % Eos % (Auto) (0.0-7.0) % Baso % (Auto) (0.0-1.5) % Neut # (Auto) (1.4-5.7) K/uL Lymph # (Auto) (0.6-2.4) K/uL [place] # (Auto) (0.0-0.8) K/uL Eos # (Auto) (0.0-0.7) K/uL Baso # (Auto) (0.0-0.1) K/uL Sodium 139 (136-145) mmol/L Potassium 5.3 H (3.5-5.1) mmol/L Chloride 110 H (98-107) mmol/L Carbon Dioxide 18.6 L (21.0-32.0) mmol/L BUN 56 H (7.0-18.0) mg/dL Creatinine 3.6 H (0.6-1.0) mg/dL Est Cr Clr Drug Dosing TNP Estimated GFR (MDRD) 12.9 ml/min Glucose 102 (74-106) mg/dL POC Glucose 97 93 (60-110) mg/dL Calcium 7.9 L (8.5-10.1) mg/dL Total Bilirubin 0.2 (0.2-1.0) mg/dL AST 18 (15-37) IU/L ALT 20 (14-63) IU/L Alkaline Phosphatase 72 (46-116) U/L Total Protein 5.6 L (6.4-8.2) g/dL Albumin 2.7 L (3.4-5.0) g/dL Globulin 2.9 (2.6-4.0) g/dL Albumin/Globulin Ratio 0.9 (0.9-1.6) 01/10/20 Range/Units 12:00 WBC (4.0-11.0) K/uL RBC (4.30-5.90) M/uL Hgb (12.0-16.0) g/dL Hct (36.0-46.0) % MCV (80.0-98.0) fL MCH (27.0-32.0) pg MCHC (31.0-37.0) g/dL RDW Std Deviation (28.0-62.0) fl RDW Coeff of Eber (11.0-15.0) % Plt Count (150-400) K/uL MPV (7.40-12.00) fL Neut % (Auto) (48.0-80.0) % Lymph % (Auto) (16.0-40.0) % [place] % (Auto) (0.0-15.0) % Eos % (Auto) (0.0-7.0) % Baso % (Auto) (0.0-1.5) % Neut # (Auto) (1.4-5.7) K/uL Lymph # (Auto) (0.6-2.4) K/uL [place] # (Auto) (0.0-0.8) K/uL Eos # (Auto) (0.0-0.7) K/uL Baso # (Auto) (0.0-0.1) K/uL Sodium (136-145) mmol/L Potassium (3.5-5.1) mmol/L Chloride (98-107) mmol/L Carbon Dioxide (21.0-32.0) mmol/L BUN (7.0-18.0) mg/dL Creatinine (0.6-1.0) mg/dL Est Cr Clr Drug Dosing Estimated GFR (MDRD) ml/min Glucose (74-106) mg/dL POC Glucose 104 (60-110) mg/dL Calcium (8.5-10.1) mg/dL Total Bilirubin (0.2-1.0) mg/dL AST (15-37) IU/L ALT (14-63) IU/L Alkaline Phosphatase (46-116) U/L Total Protein (6.4-8.2) g/dL Albumin (3.4-5.0) g/dL Globulin (2.6-4.0) g/dL Albumin/Globulin Ratio (0.9-1.6) Med Orders - Current: Current Medications Acetaminophen (Tylenol) 650 mg PO Q4H PRN PRN Reason: Pain (Mild 1-3)/fever Last Admin: 01/10/20 02:49 Dose: 650 mg Documented by: Carvedilol (Coreg) 25 mg PO DAILY [facility] Last Admin: 01/10/20 09:04 Dose: 25 mg Documented by: Heparin Sodium (Porcine) (Heparin Sodium) 5,000 units SUBCUT Q12H [facility] Last Admin: 01/10/20 06:57 Dose: 5,000 units Documented by: Sodium Chloride (Normal Saline) 1,000 mls @ 125 mls/hr IV STAT [facility] Last Admin: 01/10/20 02:44 Dose: 125 mls/hr Documented by: Melatonin (Melatonin) 9 mg PO BEDTIME [facility] Last Admin: 01/09/20 21:37 Dose: 9 mg Documented by: Ondansetron HCl (Zofran Odt) 4 mg PO Q4H PRN PRN Reason: nausea, able to take PO Ondansetron HCl (Zofran) 4 mg IVPUSH Q4H PRN PRN Reason: Nausea Rosuvastatin Calcium (Crestor) 40 mg PO BEDTIME [facility] Last Admin: 01/09/20 21:43 Dose: 40 mg Documented by: Sodium Bicarbonate (Sodium Bicarbonate) 650 mg PO TID [facility] Last Admin: 01/10/20 10:29 Dose: 650 mg Documented by: Discontinued Medications Albuterol (Proventil Neb Soln) 2.5 mg NEB ONETIME ONE Stop: 01/08/20 17:46 Last Admin: 01/08/20 21:05 Dose: Not Given Documented by: Albuterol (Proventil Neb Soln) 2.5 mg NEB ONETIME ONE Stop: 01/08/20 20:31 Last Admin: 01/08/20 21:02 Dose: 2.5 mg Documented by: Albuterol (Proventil Neb Soln) 2.5 mg NEB ONETIME ONE Stop: 01/09/20 07:36 Last Admin: 01/09/20 08:40 Dose: 2.5 mg Documented by: Albuterol (Proventil Neb Soln) 2.5 mg NEB ONETIME ONE Stop: 01/09/20 13:01 Last Admin: 01/09/20 13:54 Dose: 2.5 mg Documented by: Calcium Gluconate (Calcium Gluconate) 1 gm IVPUSH ONETIME ONE Stop: 01/08/20 17:41 Last Admin: 01/08/20 19:48 Dose: 1 gm Documented by: Calcium Gluconate (Calcium Gluconate) 1 gm IV ONETIME ONE Stop: 01/09/20 07:51 Last Admin: 01/09/20 08:41 Dose: 1 gm Documented by: Calcium Gluconate (Calcium Gluconate) 1 gm IV ONETIME ONE Stop: 01/09/20 13:21 Last Admin: 01/09/20 13:55 Dose: 1 gm Documented by: Dextrose/Water (Dextrose 50% In Water) 50 ml IVPUSH ONETIME ONE Stop: 01/08/20 17:43 Last Admin: 01/08/20 19:55 Dose: 50 ml Documented by: Dextrose/Water (Dextrose 50% In Water) 50 ml IVPUSH ONETIME ONE Stop: 01/09/20 06:34 Last Admin: 01/09/20 06:45 Dose: 50 ml Documented by: Furosemide (Lasix) 20 mg IVPUSH ONETIME ONE Stop: 01/08/20 17:59 Last Admin: 01/08/20 19:45 Dose: 20 mg Documented by: Furosemide (Lasix) 20 mg IVPUSH ONETIME ONE Stop: 01/09/20 07:48 Last Admin: 01/09/20 08:41 Dose: 20 mg Documented by: Furosemide (Lasix) 20 mg IVPUSH NOW ONE Stop: 01/09/20 12:58 Last Admin: 01/09/20 13:54 Dose: 20 mg Documented by: Furosemide (Lasix) 40 mg IVPUSH NOW ONE Stop: 01/09/20 17:18 Last Admin: 01/09/20 17:50 Dose: 40 mg Documented by: Furosemide (Lasix) 40 mg IVPUSH NOW ONE Stop: 01/10/20 09:36 Last Admin: 01/10/20 10:29 Dose: 40 mg Documented by: Heparin Sodium (Porcine) (Heparin Sodium) 5,000 units SUBCUT Q8H [facility] Last Admin: 01/08/20 18:18 Dose: Not Given Documented by: Insulin Human Regular (Novolin R) 3 unit IVPUSH ONETIME ONE; Protocol Stop: 01/08/20 17:42 Last Admin: 01/08/20 20:07 Dose: 3 units Documented by: Sodium Polystyrene Sulfonate (Kayexalate) 15 gm PO ONETIME ONE Stop: 01/10/20 10:24 Last Admin: 01/10/20 10:48 Dose: 15 gm Documented by: - Exam General: Alert, Oriented, Cooperative, No Acute Distress Lungs: Clear to Auscultation, Normal Respiratory Effort, Crackles Cardiovascular: Regular Rhythm GI/Abdominal Exam: Normal Bowel Sounds, Soft, Non-Tender, No Distention Extremities: Normal Inspection, No Pedal Edema Sepsis Event Note - Evaluation Sepsis Screening Result: No Definite Risk - Focused Exam Vital Signs: Vital Signs Temp Pulse Pulse Resp BP BP Pulse Ox 01/10/20 12:00 36.8 C 70 16 165/96 H 97 01/10/20 09:04 77 134/79 01/10/20 08:00 36.9 C 77 16 134/79 95 01/10/20 03:00 36.7 C 73 16 136/71 94 L - Problem List Review Problem List Initiated/Reviewed/Updated: Yes - My Orders Last 24 Hours: My Active Orders 01/09/20 12:58 RT Aerosol Therapy [RC] ASDIRECTED 01/09/20 19:59 Communication Order [RC] STAT 01/09/20 21:00 Rosuvastatin [Crestor] 40 mg PO BEDTIME 01/10/20 10:00 Sodium Bicarbonate 650 mg PO TID - Plan Plan:: Assessment and Plan: 1. Hyperkalemia, improving: - Patient on telemetry. Potassium level 5.3 this morning. Contacted results technician at [facility] for recommendations. Per nephrology, will give IV lasix 40 mg this AM and start PO sodium bicarbonate TID. Will recheck potassium level this afternoon. - Patient will require close outpatient nephrology follow-up within 1 week. - Retroperitoneum U/S showed atrophic left kidney. 2. Chronic kidney disease: - Will require close outpatient nephrology follow-up. 3. DVT prophylaxis: Heparin. 4. Past medical history of HTN and hyperlipidemia: - Continue home medications with the exception of ACEI/ARB. <Onel Bowles - Last Filed: 01/11/20 11:25> - General Info Subjective Update: I have seen and evaluated the patient and agree with the residents note unless specified in my note - Patient Data Vitals - Most Recent: Last Vital Signs Temp 36.8 C 01/10/20 16:00 Pulse 88 01/10/20 16:00 Resp 18 01/10/20 16:00 BP 160/98 H 01/10/20 16:16 Pulse Ox 95 01/10/20 17:00 I&O - Last 24 Hours: Intake & Output 01/10/20 01/11/20 01/11/20 22:59 06:59 14:59 Intake Total 880 Output Total 3000 Balance -2120 Lab Results Last 24 Hours: Laboratory Results - last 24 hr 01/10/20 01/10/20 01/10/20 Range/Units 12:00 15:07 17:44 Potassium 5.2 H (3.5-5.1) mmol/L POC Glucose 104 119 H (60-110) mg/dL Med Orders - Current: Current Medications Discontinued Medications Acetaminophen (Tylenol) 650 mg PO Q4H PRN PRN Reason: Pain (Mild 1-3)/fever Last Admin: 01/10/20 02:49 Dose: 650 mg Documented by: Albuterol (Proventil Neb Soln) 2.5 mg NEB ONETIME ONE Stop: 01/08/20 17:46 Last Admin: 01/08/20 21:05 Dose: Not Given Documented by: Albuterol (Proventil Neb Soln) 2.5 mg NEB ONETIME ONE Stop: 01/08/20 20:31 Last Admin: 01/08/20 21:02 Dose: 2.5 mg Documented by: Albuterol (Proventil Neb Soln) 2.5 mg NEB ONETIME ONE Stop: 01/09/20 07:36 Last Admin: 01/09/20 08:40 Dose: 2.5 mg Documented by: Albuterol (Proventil Neb Soln) 2.5 mg NEB ONETIME ONE Stop: 01/09/20 13:01 Last Admin: 01/09/20 13:54 Dose: 2.5 mg Documented by: Calcium Gluconate (Calcium Gluconate) 1 gm IVPUSH ONETIME ONE Stop: 01/08/20 17:41 Last Admin: 01/08/20 19:48 Dose: 1 gm Documented by: Calcium Gluconate (Calcium Gluconate) 1 gm IV ONETIME ONE Stop: 01/09/20 07:51 Last Admin: 01/09/20 08:41 Dose: 1 gm Documented by: Calcium Gluconate (Calcium Gluconate) 1 gm IV ONETIME ONE Stop: 01/09/20 13:21 Last Admin: 01/09/20 13:55 Dose: 1 gm Documented by: Carvedilol (Coreg) 25 mg PO DAILY [facility] Last Admin: 01/10/20 09:04 Dose: 25 mg Documented by: Dextrose/Water (Dextrose 50% In Water) 50 ml IVPUSH ONETIME ONE Stop: 01/08/20 17:43 Last Admin: 01/08/20 19:55 Dose: 50 ml Documented by: Dextrose/Water (Dextrose 50% In Water) 50 ml IVPUSH ONETIME ONE Stop: 01/09/20 06:34 Last Admin: 01/09/20 06:45 Dose: 50 ml Documented by: Furosemide (Lasix) 20 mg IVPUSH ONETIME ONE Stop: 01/08/20 17:59 Last Admin: 01/08/20 19:45 Dose: 20 mg Documented by: Furosemide (Lasix) 20 mg IVPUSH ONETIME ONE Stop: 01/09/20 07:48 Last Admin: 01/09/20 08:41 Dose: 20 mg Documented by: Furosemide (Lasix) 20 mg IVPUSH NOW ONE Stop: 01/09/20 12:58 Last Admin: 01/09/20 13:54 Dose: 20 mg Documented by: Furosemide (Lasix) 40 mg IVPUSH NOW ONE Stop: 01/09/20 17:18 Last Admin: 01/09/20 17:50 Dose: 40 mg Documented by: Furosemide (Lasix) 40 mg IVPUSH NOW ONE Stop: 01/10/20 09:36 Last Admin: 01/10/20 10:29 Dose: 40 mg Documented by: Furosemide (Lasix) 40 mg IVPUSH NOW ONE Stop: 01/10/20 15:52 Last Admin: 01/10/20 16:44 Dose: 40 mg Documented by: Heparin Sodium (Porcine) (Heparin Sodium) 5,000 units SUBCUT Q8H [facility] Last Admin: 01/08/20 18:18 Dose: Not Given Documented by: Heparin Sodium (Porcine) (Heparin Sodium) 5,000 units SUBCUT Q12H [facility] Last Admin: 01/10/20 06:57 Dose: 5,000 units Documented by: Sodium Chloride (Normal Saline) 1,000 mls @ 125 mls/hr IV STAT [facility] Last Admin: 01/10/20 15:08 Dose: 125 mls/hr Documented by: Insulin Human Regular (Novolin R) 3 unit IVPUSH ONETIME ONE; Protocol Stop: 01/08/20 17:42 Last Admin: 01/08/20 20:07 Dose: 3 units Documented by: Melatonin (Melatonin) 9 mg PO BEDTIME [facility] Last Admin: 01/09/20 21:37 Dose: 9 mg Documented by: Ondansetron HCl (Zofran Odt) 4 mg PO Q4H PRN PRN Reason: nausea, able to take PO Last Admin: 01/10/20 16:44 Dose: 4 mg Documented by: Ondansetron HCl (Zofran) 4 mg IVPUSH Q4H PRN PRN Reason: Nausea Rosuvastatin Calcium (Crestor) 40 mg PO BEDTIME [facility] Last Admin: 01/09/20 21:43 Dose: 40 mg Documented by: Sodium Bicarbonate (Sodium Bicarbonate) 650 mg PO TID [facility] Last Admin: 01/10/20 13:50 Dose: 650 mg Documented by: Sodium Polystyrene Sulfonate (Kayexalate) 15 gm PO ONETIME ONE Stop: 01/10/20 10:24 Last Admin: 01/10/20 10:48 Dose: 15 gm Documented by: Sodium Polystyrene Sulfonate (Kayexalate) 15 gm PO ONETIME ONE Stop: 01/10/20 15:52 Last Admin: 01/10/20 17:32 Dose: 15 gm Documented by:
--- NOTE | 2020-01-10 16:07 | PCM.DCSUM1 ---
<Efra Bedlola - Last Filed: 01/10/20 16:41> Discharge Summary - Hospital Course Free Text/Narrative:: 59-year-old female admitted for hyperkalemia. She has a PMH of CKD, HTN and hyperlipidemia. Patient seen by dairy cattle farm worker approximately 1 year ago but did not go to do any follow-up appoitorent. Patient directly admitted from PCP's office as potassium level was 7.0. On admission, EKG was unremarkable, creatinine 3.9, BUN 49 and eGFR 11. Addictions Counselor Dr. Vaca at [facility] in [place] was contacted for recommendations and patient was treated with IV calcium gluconate, IV insulin, amp of D50 and Proventil nebulizer treatments. No events were reported on telemetry. Patient's potassium level was noted to be downtrending and by day of discharge it was 5.2. Retroperitoneal ultrasound showed atrophic left kidney. Per dairy cattle farm worker, patient will require close outpatient follow-up with nephrology in [place] within 1 week. Addictions Counselor also recommended that once patient is cleared for discharge she should take furosemide every other day, sodium bicarbonate 650 mg TID and to discontinue irbesartan. Advised to follow strict low potassium diet and handout on low potassium diet was provided on discharge. Patient given script for repeat BMP on 01/12/20 with results forwarded to her PCP Dr. Cavazos. These recommendations were explained to patient via ekg tech and she verbalized understanding. These instructions were also explained to her son who verbalized understanding. - Discharge Data Discharge Date: 01/10/20 Discharge Disposition: Home, Self-Care 01 Condition: Stable - Referral to Home Health Primary Care Physician: Leopoldo Harris MD - Patient Instructions Diet, Other: Low potassium diet, renal diet Activity: As Tolerated Notify Provider of: Fever, Increased Pain, Swelling and Redness, Drainage, Nausea and/or Vomiting - Discharge Plan *PRESCRIPTION DRUG MONITORING PROGRAM REVIEWED*: Not Applicable *COPY OF PRESCRIPTION DRUG MONITORING REPORT IN PATIENT GLENDY: Not Applicable Prescriptions/Med Rec: Furosemide 20 mg PO Q48H 14 Days #7 tablet Sodium Bicarbonate 650 mg PO TID 14 Days #42 tab Home Medications: Home Meds Rosuvastatin Calcium 1 tab PO DAILY 05/07/18 [History] carvediloL [Carvedilol] 1 tab PO DAILY 05/07/18 [History] Acetaminophen [Acetaminophen Extra Strength] 500 mg PO ASDIRECTED PRN 01/08/20 [History] Melatonin 10 mg PO DAILY 01/08/20 [History] Furosemide 20 mg PO Q48H 14 Days #7 tablet 01/10/20 [Rx] Sodium Bicarbonate 650 mg PO TID 14 Days #42 tab 01/10/20 [Rx] Oxygen Therapy Mode: Room Air Patient Handouts: Furosemide tablets, Food Basics for Chronic Kidney Disease, Sodium Bicarbonate tablets, Hyperkalemia, [id number], Eating Plan for Dialysis, [id number] Referrals: Bjorn Gamino MD [Ordering Only Provider] - Lois Cavazos MD [Resident] - 01/16/20 2:30 pm - Discharge Summary/Plan Comment DC Time >30 min.: No - Patient Data Vitals - Most Recent: Last Vital Signs Temp 36.8 C 01/10/20 12:00 Pulse 70 01/10/20 12:00 Resp 16 01/10/20 12:00 BP 165/96 H 01/10/20 12:00 Pulse Ox 97 01/10/20 12:00 I&O - Last 24 hours: Intake & Output 01/10/20 01/10/20 01/10/20 06:59 14:59 22:59 Intake Total 1826 Output Total 2200 Balance -374 Lab Results - Last 24 hrs: Laboratory Results - last 24 hr 01/09/20 01/09/20 01/09/20 Range/Units 16:19 16:31 19:11 WBC (4.0-11.0) K/uL RBC (4.30-5.90) M/uL Hgb (12.0-16.0) g/dL Hct (36.0-46.0) % MCV (80.0-98.0) fL MCH (27.0-32.0) pg MCHC (31.0-37.0) g/dL RDW Std Deviation (28.0-62.0) fl RDW Coeff of Eber (11.0-15.0) % Plt Count (150-400) K/uL MPV (7.40-12.00) fL Neut % (Auto) (48.0-80.0) % Lymph % (Auto) (16.0-40.0) % Dale % (Auto) (0.0-15.0) % Eos % (Auto) (0.0-7.0) % Baso % (Auto) (0.0-1.5) % Neut # (Auto) (1.4-5.7) K/uL Lymph # (Auto) (0.6-2.4) K/uL Dale # (Auto) (0.0-0.8) K/uL Eos # (Auto) (0.0-0.7) K/uL Baso # (Auto) (0.0-0.1) K/uL Sodium (136-145) mmol/L Potassium 5.8 H (3.5-5.1) mmol/L Chloride (98-107) mmol/L Carbon Dioxide (21.0-32.0) mmol/L BUN (7.0-18.0) mg/dL Creatinine (0.6-1.0) mg/dL Est Cr Clr Drug Dosing Estimated GFR (MDRD) ml/min Glucose (74-106) mg/dL POC Glucose 104 111 H (60-110) mg/dL Calcium (8.5-10.1) mg/dL Total Bilirubin (0.2-1.0) mg/dL AST (15-37) IU/L ALT (14-63) IU/L Alkaline Phosphatase (46-116) U/L Total Protein (6.4-8.2) g/dL Albumin (3.4-5.0) g/dL Globulin (2.6-4.0) g/dL Albumin/Globulin Ratio (0.9-1.6) 01/09/20 01/09/20 01/10/20 Range/Units 21:46 22:06 01:12 WBC (4.0-11.0) K/uL RBC (4.30-5.90) M/uL Hgb (12.0-16.0) g/dL Hct (36.0-46.0) % MCV (80.0-98.0) fL MCH (27.0-32.0) pg MCHC (31.0-37.0) g/dL RDW Std Deviation (28.0-62.0) fl RDW Coeff of Eber (11.0-15.0) % Plt Count (150-400) K/uL MPV (7.40-12.00) fL Neut % (Auto) (48.0-80.0) % Lymph % (Auto) (16.0-40.0) % Dale % (Auto) (0.0-15.0) % Eos % (Auto) (0.0-7.0) % Baso % (Auto) (0.0-1.5) % Neut # (Auto) (1.4-5.7) K/uL Lymph # (Auto) (0.6-2.4) K/uL Dale # (Auto) (0.0-0.8) K/uL Eos # (Auto) (0.0-0.7) K/uL Baso # (Auto) (0.0-0.1) K/uL Sodium 140 (136-145) mmol/L Potassium 5.3 H (3.5-5.1) mmol/L Chloride 109 H (98-107) mmol/L Carbon Dioxide 22.8 (21.0-32.0) mmol/L BUN 55 H (7.0-18.0) mg/dL Creatinine 3.5 H (0.6-1.0) mg/dL Est Cr Clr Drug Dosing TNP Estimated GFR (MDRD) 13.3 ml/min Glucose 119 H (74-106) mg/dL POC Glucose 132 H 113 H (60-110) mg/dL Calcium 8.1 L (8.5-10.1) mg/dL Total Bilirubin (0.2-1.0) mg/dL AST (15-37) IU/L ALT (14-63) IU/L Alkaline Phosphatase (46-116) U/L Total Protein (6.4-8.2) g/dL Albumin (3.4-5.0) g/dL Globulin (2.6-4.0) g/dL Albumin/Globulin Ratio (0.9-1.6) 01/10/20 01/10/20 01/10/20 Range/Units 04:45 05:40 05:40 WBC 6.44 (4.0-11.0) K/uL RBC 3.22 L (4.30-5.90) M/uL Hgb 9.5 L (12.0-16.0) g/dL Hct 30.4 L (36.0-46.0) % MCV 94.4 (80.0-98.0) fL MCH 29.5 (27.0-32.0) pg MCHC 31.3 (31.0-37.0) g/dL RDW Std Deviation 42.4 (28.0-62.0) fl RDW Coeff of Eber 13 (11.0-15.0) % Plt Count 171 (150-400) K/uL MPV 12.70 H (7.40-12.00) fL Neut % (Auto) 53.1 (48.0-80.0) % Lymph % (Auto) 33.5 (16.0-40.0) % Dale % (Auto) 10.7 (0.0-15.0) % Eos % (Auto) 2.5 (0.0-7.0) % Baso % (Auto) 0.2 (0.0-1.5) % Neut # (Auto) 3.4 (1.4-5.7) K/uL Lymph # (Auto) 2.2 (0.6-2.4) K/uL Dale # (Auto) 0.7 (0.0-0.8) K/uL Eos # (Auto) 0.2 (0.0-0.7) K/uL Baso # (Auto) 0.0 (0.0-0.1) K/uL Sodium 139 (136-145) mmol/L Potassium 5.3 H (3.5-5.1) mmol/L Chloride 110 H (98-107) mmol/L Carbon Dioxide 18.6 L (21.0-32.0) mmol/L BUN 56 H (7.0-18.0) mg/dL Creatinine 3.6 H (0.6-1.0) mg/dL Est Cr Clr Drug Dosing TNP Estimated GFR (MDRD) 12.9 ml/min Glucose 102 (74-106) mg/dL POC Glucose 96 (60-110) mg/dL Calcium 7.9 L (8.5-10.1) mg/dL Total Bilirubin 0.2 (0.2-1.0) mg/dL AST 18 (15-37) IU/L ALT 20 (14-63) IU/L Alkaline Phosphatase 72 (46-116) U/L Total Protein 5.6 L (6.4-8.2) g/dL Albumin 2.7 L (3.4-5.0) g/dL Globulin 2.9 (2.6-4.0) g/dL Albumin/Globulin Ratio 0.9 (0.9-1.6) 01/10/20 01/10/20 01/10/20 Range/Units 06:54 09:53 12:00 WBC (4.0-11.0) K/uL RBC (4.30-5.90) M/uL Hgb (12.0-16.0) g/dL Hct (36.0-46.0) % MCV (80.0-98.0) fL MCH (27.0-32.0) pg MCHC (31.0-37.0) g/dL RDW Std Deviation (28.0-62.0) fl RDW Coeff of Eber (11.0-15.0) % Plt Count (150-400) K/uL MPV (7.40-12.00) fL Neut % (Auto) (48.0-80.0) % Lymph % (Auto) (16.0-40.0) % Dale % (Auto) (0.0-15.0) % Eos % (Auto) (0.0-7.0) % Baso % (Auto) (0.0-1.5) % Neut # (Auto) (1.4-5.7) K/uL Lymph # (Auto) (0.6-2.4) K/uL Dale # (Auto) (0.0-0.8) K/uL Eos # (Auto) (0.0-0.7) K/uL Baso # (Auto) (0.0-0.1) K/uL Sodium (136-145) mmol/L Potassium (3.5-5.1) mmol/L Chloride (98-107) mmol/L Carbon Dioxide (21.0-32.0) mmol/L BUN (7.0-18.0) mg/dL Creatinine (0.6-1.0) mg/dL Est Cr Clr Drug Dosing Estimated GFR (MDRD) ml/min Glucose (74-106) mg/dL POC Glucose 97 93 104 (60-110) mg/dL Calcium (8.5-10.1) mg/dL Total Bilirubin (0.2-1.0) mg/dL AST (15-37) IU/L ALT (14-63) IU/L Alkaline Phosphatase (46-116) U/L Total Protein (6.4-8.2) g/dL Albumin (3.4-5.0) g/dL Globulin (2.6-4.0) g/dL Albumin/Globulin Ratio (0.9-1.6) / Range/Units 15:07 WBC (4.0-11.0) K/uL RBC (4.30-5.90) M/uL Hgb (12.0-16.0) g/dL Hct (36.0-46.0) % MCV (80.0-98.0) fL MCH (27.0-32.0) pg MCHC (31.0-37.0) g/dL RDW Std Deviation (28.0-62.0) fl RDW Coeff of Eber (11.0-15.0) % Plt Count (150-400) K/uL MPV (7.40-12.00) fL Neut % (Auto) (48.0-80.0) % Lymph % (Auto) (16.0-40.0) % Dale % (Auto) (0.0-15.0) % Eos % (Auto) (0.0-7.0) % Baso % (Auto) (0.0-1.5) % Neut # (Auto) (1.4-5.7) K/uL Lymph # (Auto) (0.6-2.4) K/uL Dale # (Auto) (0.0-0.8) K/uL Eos # (Auto) (0.0-0.7) K/uL Baso # (Auto) (0.0-0.1) K/uL Sodium (136-145) mmol/L Potassium 5.2 H (3.5-5.1) mmol/L Chloride (98-107) mmol/L Carbon Dioxide (21.0-32.0) mmol/L BUN (7.0-18.0) mg/dL Creatinine (0.6-1.0) mg/dL Est Cr Clr Drug Dosing Estimated GFR (MDRD) ml/min Glucose (74-106) mg/dL POC Glucose (60-110) mg/dL Calcium (8.5-10.1) mg/dL Total Bilirubin (0.2-1.0) mg/dL AST (15-37) IU/L ALT (14-63) IU/L Alkaline Phosphatase (46-116) U/L Total Protein (6.4-8.2) g/dL Albumin (3.4-5.0) g/dL Globulin (2.6-4.0) g/dL Albumin/Globulin Ratio (0.9-1.6) Med Orders - Current: Current Medications Acetaminophen (Tylenol) 650 mg PO Q4H PRN PRN Reason: Pain (Mild 1-3)/fever Last Admin: 01/10/20 02:49 Dose: 650 mg Documented by: Carvedilol (Coreg) 25 mg PO DAILY [facility] Last Admin: 01/10/20 09:04 Dose: 25 mg Documented by: Heparin Sodium (Porcine) (Heparin Sodium) 5,000 units SUBCUT Q12H [facility] Last Admin: 01/10/20 06:57 Dose: 5,000 units Documented by: Sodium Chloride (Normal Saline) 1,000 mls @ 125 mls/hr IV STAT [facility] Last Admin: 01/10/20 15:08 Dose: 125 mls/hr Documented by: Melatonin (Melatonin) 9 mg PO BEDTIME [facility] Last Admin: 01/09/20 21:37 Dose: 9 mg Documented by: Ondansetron HCl (Zofran Odt) 4 mg PO Q4H PRN PRN Reason: nausea, able to take PO Ondansetron HCl (Zofran) 4 mg IVPUSH Q4H PRN PRN Reason: Nausea Rosuvastatin Calcium (Crestor) 40 mg PO BEDTIME [facility] Last Admin: 01/09/20 21:43 Dose: 40 mg Documented by: Sodium Bicarbonate (Sodium Bicarbonate) 650 mg PO TID [facility] Last Admin: 01/10/20 13:50 Dose: 650 mg Documented by: Discontinued Medications Albuterol (Proventil Neb Soln) 2.5 mg NEB ONETIME ONE Stop: 01/08/20 17:46 Last Admin: 01/08/20 21:05 Dose: Not Given Documented by: Albuterol (Proventil Neb Soln) 2.5 mg NEB ONETIME ONE Stop: 01/08/20 20:31 Last Admin: 01/08/20 21:02 Dose: 2.5 mg Documented by: Albuterol (Proventil Neb Soln) 2.5 mg NEB ONETIME ONE Stop: 01/09/20 07:36 Last Admin: 01/09/20 08:40 Dose: 2.5 mg Documented by: Albuterol (Proventil Neb Soln) 2.5 mg NEB ONETIME ONE Stop: 01/09/20 13:01 Last Admin: 01/09/20 13:54 Dose: 2.5 mg Documented by: Calcium Gluconate (Calcium Gluconate) 1 gm IVPUSH ONETIME ONE Stop: 01/08/20 17:41 Last Admin: 01/08/20 19:48 Dose: 1 gm Documented by: Calcium Gluconate (Calcium Gluconate) 1 gm IV ONETIME ONE Stop: 01/09/20 07:51 Last Admin: 01/09/20 08:41 Dose: 1 gm Documented by: Calcium Gluconate (Calcium Gluconate) 1 gm IV ONETIME ONE Stop: 01/09/20 13:21 Last Admin: 01/09/20 13:55 Dose: 1 gm Documented by: Dextrose/Water (Dextrose 50% In Water) 50 ml IVPUSH ONETIME ONE Stop: 01/08/20 17:43 Last Admin: 01/08/20 19:55 Dose: 50 ml Documented by: Dextrose/Water (Dextrose 50% In Water) 50 ml IVPUSH ONETIME ONE Stop: 01/09/20 06:34 Last Admin: 01/09/20 06:45 Dose: 50 ml Documented by: Furosemide (Lasix) 20 mg IVPUSH ONETIME ONE Stop: 01/08/20 17:59 Last Admin: 01/08/20 19:45 Dose: 20 mg Documented by: Furosemide (Lasix) 20 mg IVPUSH ONETIME ONE Stop: 01/09/20 07:48 Last Admin: 01/09/20 08:41 Dose: 20 mg Documented by: Furosemide (Lasix) 20 mg IVPUSH NOW ONE Stop: 01/09/20 12:58 Last Admin: 01/09/20 13:54 Dose: 20 mg Documented by: Furosemide (Lasix) 40 mg IVPUSH NOW ONE Stop: 01/09/20 17:18 Last Admin: 01/09/20 17:50 Dose: 40 mg Documented by: Furosemide (Lasix) 40 mg IVPUSH NOW ONE Stop: 01/10/20 09:36 Last Admin: 01/10/20 10:29 Dose: 40 mg Documented by: Furosemide (Lasix) 40 mg IVPUSH NOW ONE Stop: 01/10/20 15:52 Heparin Sodium (Porcine) (Heparin Sodium) 5,000 units SUBCUT Q8H [facility] Last Admin: 01/08/20 18:18 Dose: Not Given Documented by: Insulin Human Regular (Novolin R) 3 unit IVPUSH ONETIME ONE; Protocol Stop: 01/08/20 17:42 Last Admin: 01/08/20 20:07 Dose: 3 units Documented by: Sodium Polystyrene Sulfonate (Kayexalate) 15 gm PO ONETIME ONE Stop: 01/10/20 10:24 Last Admin: 01/10/20 10:48 Dose: 15 gm Documented by: Sodium Polystyrene Sulfonate (Kayexalate) 15 gm PO ONETIME ONE Stop: 01/10/20 15:52 <Onel Bowles - Last Filed: 01/11/20 11:21> Discharge Summary - Hospital Course Free Text/Narrative:: I have seen and evaluated the patient and agree with the residents note unless specified in my note - Referral to Home Health Primary Care Physician: Leopoldo Harris MD - Patient Data Vitals - Most Recent: Last Vital Signs Temp 36.8 C 01/10/20 16:00 Pulse 88 01/10/20 16:00 Resp 18 01/10/20 16:00 BP 160/98 H 01/10/20 16:16 Pulse Ox 95 01/10/20 17:00 I&O - Last 24 hours: Intake & Output 01/10/20 01/11/20 01/11/20 22:59 06:59 14:59 Intake Total 880 Output Total 3000 Balance -2120 Lab Results - Last 24 hrs: Laboratory Results - last 24 hr 01/10/20 01/10/20 01/10/20 Range/Units 12:00 15:07 17:44 Potassium 5.2 H (3.5-5.1) mmol/L POC Glucose 104 119 H (60-110) mg/dL Med Orders - Current: Current Medications Discontinued Medications Acetaminophen (Tylenol) 650 mg PO Q4H PRN PRN Reason: Pain (Mild 1-3)/fever Last Admin: 01/10/20 02:49 Dose: 650 mg Documented by: Albuterol (Proventil Neb Soln) 2.5 mg NEB ONETIME ONE Stop: 01/08/20 17:46 Last Admin: 01/08/20 21:05 Dose: Not Given Documented by: Albuterol (Proventil Neb Soln) 2.5 mg NEB ONETIME ONE Stop: 01/08/20 20:31 Last Admin: 01/08/20 21:02 Dose: 2.5 mg Documented by: Albuterol (Proventil Neb Soln) 2.5 mg NEB ONETIME ONE Stop: 01/09/20 07:36 Last Admin: 01/09/20 08:40 Dose: 2.5 mg Documented by: Albuterol (Proventil Neb Soln) 2.5 mg NEB ONETIME ONE Stop: 01/09/20 13:01 Last Admin: 01/09/20 13:54 Dose: 2.5 mg Documented by: Calcium Gluconate (Calcium Gluconate) 1 gm IVPUSH ONETIME ONE Stop: 01/08/20 17:41 Last Admin: 01/08/20 19:48 Dose: 1 gm Documented by: Calcium Gluconate (Calcium Gluconate) 1 gm IV ONETIME ONE Stop: 01/09/20 07:51 Last Admin: 01/09/20 08:41 Dose: 1 gm Documented by: Calcium Gluconate (Calcium Gluconate) 1 gm IV ONETIME ONE Stop: 01/09/20 13:21 Last Admin: 01/09/20 13:55 Dose: 1 gm Documented by: Carvedilol (Coreg) 25 mg PO DAILY [facility] Last Admin: 01/10/20 09:04 Dose: 25 mg Documented by: Dextrose/Water (Dextrose 50% In Water) 50 ml IVPUSH ONETIME ONE Stop: 01/08/20 17:43 Last Admin: 01/08/20 19:55 Dose: 50 ml Documented by: Dextrose/Water (Dextrose 50% In Water) 50 ml IVPUSH ONETIME ONE Stop: 01/09/20 06:34 Last Admin: 01/09/20 06:45 Dose: 50 ml Documented by: Furosemide (Lasix) 20 mg IVPUSH ONETIME ONE Stop: 01/08/20 17:59 Last Admin: 01/08/20 19:45 Dose: 20 mg Documented by: Furosemide (Lasix) 20 mg IVPUSH ONETIME ONE Stop: 01/09/20 07:48 Last Admin: 01/09/20 08:41 Dose: 20 mg Documented by: Furosemide (Lasix) 20 mg IVPUSH NOW ONE Stop: 01/09/20 12:58 Last Admin: 01/09/20 13:54 Dose: 20 mg Documented by: Furosemide (Lasix) 40 mg IVPUSH NOW ONE Stop: 01/09/20 17:18 Last Admin: 01/09/20 17:50 Dose: 40 mg Documented by: Furosemide (Lasix) 40 mg IVPUSH NOW ONE Stop: 01/10/20 09:36 Last Admin: 01/10/20 10:29 Dose: 40 mg Documented by: Furosemide (Lasix) 40 mg IVPUSH NOW ONE Stop: 01/10/20 15:52 Last Admin: 01/10/20 16:44 Dose: 40 mg Documented by: Heparin Sodium (Porcine) (Heparin Sodium) 5,000 units SUBCUT Q8H [facility] Last Admin: 01/08/20 18:18 Dose: Not Given Documented by: Heparin Sodium (Porcine) (Heparin Sodium) 5,000 units SUBCUT Q12H [facility] Last Admin: 01/10/20 06:57 Dose: 5,000 units Documented by: Sodium Chloride (Normal Saline) 1,000 mls @ 125 mls/hr IV STAT [facility] Last Admin: 01/10/20 15:08 Dose: 125 mls/hr Documented by: Insulin Human Regular (Novolin R) 3 unit IVPUSH ONETIME ONE; Protocol Stop: 01/08/20 17:42 Last Admin: 01/08/20 20:07 Dose: 3 units Documented by: Melatonin (Melatonin) 9 mg PO BEDTIME [facility] Last Admin: 01/09/20 21:37 Dose: 9 mg Documented by: Ondansetron HCl (Zofran Odt) 4 mg PO Q4H PRN PRN Reason: nausea, able to take PO Last Admin: 01/10/20 16:44 Dose: 4 mg Documented by: Ondansetron HCl (Zofran) 4 mg IVPUSH Q4H PRN PRN Reason: Nausea Rosuvastatin Calcium (Crestor) 40 mg PO BEDTIME [facility] Last Admin: 01/09/20 21:43 Dose: 40 mg Documented by: Sodium Bicarbonate (Sodium Bicarbonate) 650 mg PO TID [facility] Last Admin: 01/10/20 13:50 Dose: 650 mg Documented by: Sodium Polystyrene Sulfonate (Kayexalate) 15 gm PO ONETIME ONE Stop: 01/10/20 10:24 Last Admin: 01/10/20 10:48 Dose: 15 gm Documented by: Sodium Polystyrene Sulfonate (Kayexalate) 15 gm PO ONETIME ONE Stop: 01/10/20 15:52 Last Admin: 01/10/20 17:32 Dose: 15 gm Documented by:
== END 2020-01-10 18:10 | disposition home or self-care (01) ==
LOC: MW.MS 17:30
PROVIDERS: ADMIT Internal Medicine; ATTEND Internal Medicine
DX: E87.5 Hyperkalemia (principal); I12.9 Hypertensive chronic kidney disease with stage 1 through stage 4 chronic kidney disease, or unspecified chronic kidney disease; N18.9 Chronic kidney disease, unspecified; E78.5 Hyperlipidemia, unspecified; Z20.828 Contact with and (suspected) exposure to other viral communicable diseases; Z88.0 Allergy status to penicillin; Z79.899 Other long term (current) drug therapy
CPT/HCPCS: 36415; 76775; 80048; 80053; 82962; 84132; 85025; 87635; 96361; 96372; 96374; 96375; 96376; A9270; G0378; G0379; J0610; J1644; J1815; J1940; J7030; U0002